=== PATIENT | male | born 1985 | race Asian ===

== ENCOUNTER 2022-10-27 10:13 | Emergency (ER) | payer BC ==
[~2022-10-27] VITALS: Ht 162.6 cm; Wt 60.0 kg
[2022-10-27 10:22] VITALS: BP 110/67; PULSE 67; RESP 16; TEMP 98.3; O2SAT 98
[2022-10-27] MEDS ORDERED: DOXY150T5 PO (10:38)
[2022-10-27] MEDS ORDERED: DOXY-1 PO (10:51)
[2022-10-27] MEDS ORDERED: DOXY-11 PO (10:54)
== END 2022-10-27 11:10 | disposition home or self-care (01) ==
LOC: ER 10:14
DX: H00.031 Abscess of right upper eyelid (principal); Z79.899 Other long term (current) drug therapy
CPT/HCPCS: 99283

== ENCOUNTER 2023-02-20 11:47 | Outpatient (CLI) | payer BC ==
[2023-02-20 12:23] LABS: BASOPHILS % (AUTO) 0.5 % (0-1); EOSINOPHILS # (AUTO) 0.3 X10'3 (0-0.9); EOSINOPHILS % (AUTO) 4.5 % (0-6); HEMATOCRIT 43.7 % (42.0-52.0); HEMOGLOBIN 14.4 g/dl (14.0-17.9); LYMPHOCYTES # (AUTO) 2.4 X10'3 (1.1-4.8); LYMPHOCYTES % (AUTO) 43.2 % (21-51); MEAN CORPUSCULAR HEMOGLOBIN 28.7 PG (27.0-31.0); MEAN CORPUSCULAR HGB CONC 32.9 g/dL (33.0-36.5); MEAN CORPUSCULAR VOLUME 87.4 FL (78-98); MEAN PLATELET VOLUME 8.1 FL (7.4-10.4); MONOCYTES # (AUTO) 0.4 X10'3 (0-0.9); MONOCYTES % (AUTO) 7.2 % (2-12); NEUTROPHILS # (AUTO) 2.5 X10'3 (1.8-7.7); NEUTROPHILS % (AUTO) 44.6 % (42-75); PLATELET COUNT 269 X10'3 (140-440); WHITE BLOOD COUNT 5.5 X10'3 (4.5-11.0)
[2023-02-20 12:37] LABS: ALANINE AMINOTRANSFERASE 23 U/L (12-78); ALBUMIN 4.2 G/DL (3.4-5.0); ALBUMIN/GLOBULIN RATIO 1.2 (1.1-1.5); ALKALINE PHOSPHATASE 69 IU/L (46-116); ANION GAP 8 (8-16); ASPARTATE AMINO TRANSFERASE 19 U/L (10-37); BILIRUBIN,TOTAL 0.3 MG/DL (0.1-1.0); BLOOD UREA NITROGEN 11 MG/DL (7-18); CALCIUM 9.2 MG/DL (8.5-10.1); CHLORIDE 102 MMOL/L (99-107); CHOLESTEROL 165 MG/DL (0-200); GLUCOSE 146 MG/DL (70-104); HDL CHOLESTEROL 55 MG/DL (35-60); LDL CHOLESTEROL 95 MG/DL (50-100); POTASSIUM 4.2 MMOL/L (3.5-5.1); SODIUM 136 MMOL/L (135-145); TOTAL CARBON DIOXIDE 26.1 MMOL/L (24-32); TOTAL PROTEIN 7.7 G/DL (6.4-8.2); TRIGLYCERIDES 163 MG/DL (20-135); eGFR 76 ML/MIN
[2023-02-21 08:59] LABS: FOLATE SERUM(FOLIC) 7.1 ng/mL (>3.0)
== END 2023-02-20 23:59 | disposition home or self-care (01) ==
LOC: LAB 11:47
PROVIDERS: ATTEND Registered Nurse
DX: Z00.00 Encounter for general adult medical examination without abnormal findings (principal); E55.9 Vitamin D deficiency, unspecified; Z71.89 Other specified counseling; Z86.16 Personal history of COVID-19
CPT/HCPCS: 36415; 80053; 80061; 82306; 82607; 82746; 85025

== ENCOUNTER 2023-11-21 20:36 | Emergency (ER) | payer BC ==
[~2023-11-21] VITALS: Ht 162.6 cm; Wt 60.0 kg
[2023-11-21] MEDS ORDERED: PRED20TA PO (22:02)
[2023-11-21] MEDS ORDERED: HYDR-3686 PO (22:02)
[2023-11-21] MEDS: hydrOXYzine 25 MG tablet PO ONE (22:11)
[2023-11-21] MEDS: predniSONE 20 mg tablet PO ONE (22:12)
[2023-11-21 22:16] VITALS: BP 133/77; PULSE 74; RESP 16; TEMP 97.9; O2SAT 98
== END 2023-11-21 22:20 | disposition home or self-care (01) ==
LOC: ER 20:37
DX: S00.561A Insect bite (nonvenomous) of lip, initial encounter (principal); R22.0 Localized swelling, mass and lump, head; W57.XXXA Bitten or stung by nonvenomous insect and other nonvenomous arthropods, initial encounter; Y93.89 Activity, other specified; Y92.89 Other specified places as the place of occurrence of the external cause; Y99.8 Other external cause status
CPT/HCPCS: 99283; J7512; Q0177

== ENCOUNTER 2024-02-28 13:18 | Outpatient (CLI) | payer BC ==
[~2024-02-28 13:18] MED LIST: LIDO15SO9 PO
[2024-02-28 13:45] LABS: BASOPHILS % (AUTO) 0.7 % (0-1); EOSINOPHILS # (AUTO) 0.2 X10'3 (0-0.9); EOSINOPHILS % (AUTO) 4.6 % (0-6); HEMATOCRIT 41.7 % (42.0-52.0); HEMOGLOBIN 14.2 g/dl (14.0-17.9); LYMPHOCYTES # (AUTO) 2.5 X10'3 (1.1-4.8); MEAN CORPUSCULAR HEMOGLOBIN 29.5 PG (27.0-31.0); MEAN CORPUSCULAR VOLUME 86.8 FL (78-98); MEAN PLATELET VOLUME 7.9 FL (7.4-10.4); MONOCYTES # (AUTO) 0.4 X10'3 (0-0.9); MONOCYTES % (AUTO) 6.8 % (2-12); NEUTROPHILS # (AUTO) 2.2 X10'3 (1.8-7.7); NEUTROPHILS % (AUTO) 40.9 % (42-75); PLATELET COUNT 290 X10'3 (140-440); RED BLOOD COUNT 4.81 X10'6 (4.70-6.10); RED CELL DISTRIBUTION WIDTH 13.6 % (11.5-14.5); WHITE BLOOD COUNT 5.4 X10'3 (4.5-11.0)
[2024-02-28 13:56] LABS: ALANINE AMINOTRANSFERASE 35 U/L (12-78); ALBUMIN 4.1 G/DL (3.4-5.0); ALBUMIN/GLOBULIN RATIO 1.2 (1.1-1.5); ALKALINE PHOSPHATASE 75 IU/L (46-116); ANION GAP 7 (8-16); ASPARTATE AMINO TRANSFERASE 21 U/L (10-37); BILIRUBIN,TOTAL 0.4 MG/DL (0.1-1.0); BLOOD UREA NITROGEN 11 MG/DL (7-18); BUN/CREATININE RATIO 10.4 (10.0-20.0); CHLORIDE 105 MMOL/L (99-107); CHOL/HDL RATIO 3.4 (0.00-4.99); CHOLESTEROL 198 MG/DL (0-200); CREATININE 1.06 MG/DL (0.60-1.10); GLUCOSE 94 MG/DL (70-104); HDL CHOLESTEROL 58 MG/DL (35-60); LDL CHOLESTEROL 121 MG/DL (50-100); POTASSIUM 3.9 MMOL/L (3.5-5.1); SODIUM 140 MMOL/L (135-145); TOTAL CARBON DIOXIDE 28.2 MMOL/L (24-32); TOTAL PROTEIN 7.6 G/DL (6.4-8.2); TRIGLYCERIDES 122 MG/DL (20-135); eGFR 79 ML/MIN
== END 2024-02-28 23:59 | disposition home or self-care (01) ==
LOC: LAB 13:18
PROVIDERS: ATTEND Registered Nurse
DX: R73.9 Hyperglycemia, unspecified (principal); E78.1 Pure hyperglyceridemia; E55.9 Vitamin D deficiency, unspecified
CPT/HCPCS: 36415; 80053; 80061; 82306; 85025